=== PATIENT | female | born 1955 | race Caucasian/White ===

== ENCOUNTER → 2016-09-25 | Day surgery (SDC) | payer MEDICARE, OTHER ==
--- NOTE | 2016-09-24 18:56 | Pre-Procedure Note/Attestation ---
Pre-Procedure Note/Attestation Complete Prior to Procedure Planned Procedure: not applicable Procedure Narrative: Excision of excess tissue lower lip from foreign body material injected many years ago. Indications for Procedure Pre-Operative Diagnosis: Excess tissue lower lip-foreign body reaction. Attestation I attest that I discussed the nature of the procedure; its benefits; risks and complications; and alternatives (and the risks and benefits of such alternatives ), prior to the procedure, with the patient (or the patient's legal financial representative). I attest that, if there was a reasonable possibility of needing a blood transfusion, the patient (or the patient's legal financial representative) was given the [facility] standardized written summary, pursuant to the [place] Blood Safety Act ([place] Health and Safety Code # 1645, as amended). I attest that I re-evaluated the patient just prior to the surgery and that there has been no change in the patient's H&P-which was done by her PMD-an outside MD, whose note I have signed in the order. Pt INR yesterday was 1.0. HAZEL VILCHIS Sep 24, 2016 18:56
[2016-09-25] VITALS (7 sets, daily range): BP systolic 99–126; BP diastolic 54–72
[~2016-09-25] VITALS: Ht 162.6 cm; Wt 56.7 kg
[~2016-09-25] MED LIST: ABILIFY15 MG ORAL; Bacitracin Oint 15gm Tube TOPIC ONE; Bupivacaine w/Epi 0.5% 30ml Vial INJ ONE; CALCIUM CITRAT250 M1 PO; Dexamethasone 4mg/ml vial IVP ONE; Dexamethasone 4mg/ml vial ONE; HYDROmorphone 1mg/ml Carpuject SUBQ PRN; Hydrogen Peroxide 120ml Bottle TOPIC ONE; Hydromorphone 0.5mg/0.5ml inj IVP PRN; LR 1000ml 1,000 ML IV SCH; LR 1000ml 1,000 ML IVLG SCH; LR 1000ml ONE; Lidocaine 1% 10mg/ml/Epi 0.005mg/ml 30ml vial INJ ONE; MS CONTIN30 MG ORAL; Metoclopramide 10mg/2ml Inj IVP PRN; Midazolam 2mg/2ml Inj IVP PRN; Midazolam 2mg/2ml Inj ONE; NEURONTIN600 MG ORAL; NS Irrig 1000ml IRRIG ONE; NS Irrig 1000ml ONE; Norco 5mg/325mg tab ORAL PRN; Propofol 10mg/ml 20ml IV ONE; SERTRALINE HCL100 MG PO; Sterile Water Irrig 1000ml IRRIG ONE; TRAZODONE HCL100 MG ORAL; XANAX1 MG ORAL; ceFAZolin sod 1 GM in D5W 55 ML IV ONE; ePHEDrine 50mg/ml Inj ONE; fentaNYL 100 mcg/2 mL IV ONE
[2016-09-25 06:21] LABS: BASOPHILS % (AUTO) 0.7 % (0.0-2.0); EOSINOPHILS % (AUTO) 0.3 % (0.0-3.0); LYMPHOCYTES % (AUTO) 17.2 % (20.0-45.0); MEAN CORPUSCULAR HEMOGLOBIN 29.4 PG (27.0-31.0); MEAN CORPUSCULAR HGB CONC 31.8 G/DL (32.0-36.0); MEAN CORPUSCULAR VOLUME 92 FL (80-99); MEAN PLATELET VOLUME 7.6 FL (6.5-10.1); MONOCYTES % (AUTO) 5.9 % (1.0-10.0); NEUTROPHILS % (AUTO) 75.9 % (45.0-75.0); PLATELET COUNT 280 K/UL (150-450); RED BLOOD COUNT 3.98 M/UL (4.20-5.40); RED CELL DISTRIBUTION WIDTH 14.5 % (11.6-14.8); WHITE BLOOD COUNT 6.7 K/UL (4.8-10.8)
[2016-09-25 06:29] LABS: INR 0.9 (0.9-1.1); PROTHROMBIN TIME 9.4 SEC (9.30-11.50)
[2016-09-25 06:45] LABS: ANION GAP 16 (5-15); CALCIUM 9.1 mg/dL (8.6-10.2); CARBON DIOXIDE 25 mEQ/L (20-30); CHLORIDE 101 mEQ/L (98-107); CREATININE 0.8 mg/dL (0.5-0.9); GLOMERULAR FILTRATION RATE > 60 mL/min (>60); HEMOLYSIS 108; POTASSIUM 3.8 mEQ/L (3.4-4.9); SODIUM 142 mEQ/L (135-145)
--- NOTE | 2016-09-25 08:30 | Anethesia Preoperative Eval ---
Anesthesia Pre-op PMH/ROS General Date of Evaluation: Sep 25, 2016 Time of Evaluation: 07:25 Anesthesiologist: Prerna ASA Score: ASA 3 Mallampati Score Class I : Soft palate, uvula, fauces, pillars visible Class II: Soft palate, uvula, fauces visible Class III: Soft palate, base of uvula visible Class IV: Only hard plate visible Mallampati Classification: Class I Surgeon: Linda Diagnosis: Cyst lower lip Surgical Procedure: Excision of lower lip cyst Family History: no anesthesia problems Allergies: Coded Allergies: NALOXONE (Verified Allergy, Severe, Rash, 09/24/16) Oily Fish (Verified Allergy, Severe, 09/25/16) ANAPHYLACTIC SHOCK CARBAMAZEPINE (Verified Allergy, Intermediate, Rash, 09/24/16) DIVALPROEX SODIUM (Verified Allergy, Intermediate, Hives, 09/24/16) PENICILLINS (Verified Allergy, Intermediate, Rash, 09/24/16) PHENYTOIN (Verified Allergy, Intermediate, Rash, 09/24/16) Past Medical History Cardiovascular: Reports: other - CHF, Denies: CAD, HTN, SD, arrhythmia, valve dz Pulmonary: Denies: COPD, STORM, asthma, other Gastrointestinal/Genitourinary: Denies: CRI, ESRD, GERD, other Neurologic/Psychiatric: Reports: depression/anxiety Endocrine: Denies: DM, hypothyroidism, other, steroids HEENT: Denies: SILETZ TRIBE (L), [place] TRIBE (R), cataract (L), cataract (R), glaucoma, other Hematology/Immune: Denies: DVT, anemia, bleeding disorder, other Musculoskeletal/Integumentary: Reports: OA PMH Narrative: Immuno deficiency, CHF, depression, anxiety, OA PSxH Narrative: Multiple orthopedic surgeries including right TKR, left TSR, several ORIFs, BLANCHE , open lung biopsy Anesthesia Pre-op Phys. Exam Physician Exam Last Vital Signs Date Time Temp Pulse Resp B/P Pulse Ox O2 Delivery O2 Flow Rate FiO2 09/25/16 05:58 97.9 85 20 99/55 95 Room Air Neurologic: CN 2-12 intact Cardiovascular: no M/R/G Airway Exam Mallampati Score: Class I MO: full ROM: full Teeth: intact Anesthesia Pre-op A/P Labs Hematology Test 09/25/16 05:55 White Blood Count 6.7 K/UL (4.8-10.8) Red Blood Count 3.98 M/UL (4.20-5.40) L Hemoglobin 11.7 G/DL (12.0-16.0) L Hematocrit 36.7 % (37.0-47.0) L Mean Corpuscular Volume 92 FL (80-99) Mean Corpuscular Hemoglobin 29.4 PG (27.0-31.0) Mean Corpuscular Hemoglobin Concent 31.8 G/DL (32.0-36.0) L Red Cell Distribution Width 14.5 % (11.6-14.8) Platelet Count 280 K/UL (150-450) Mean Platelet Volume 7.6 FL (6.5-10.1) Neutrophils (%) (Auto) 75.9 % (45.0-75.0) H Lymphocytes (%) (Auto) 17.2 % (20.0-45.0) L Monocytes (%) (Auto) 5.9 % (1.0-10.0) Eosinophils (%) (Auto) 0.3 % (0.0-3.0) Basophils (%) (Auto) 0.7 % (0.0-2.0) Coagulation Test 09/25/16 05:55 Prothrombin Time 9.4 SEC (9.30-11.50) Prothromb Time International Ratio 0.9 (0.9-1.1) Activated Partial Thromboplast Time 22 SEC (23-33) L Chemistry Test 09/25/16 05:55 Sodium Level 142 mEQ/L (135-145) Potassium Level 3.8 mEQ/L (3.4-4.9) Chloride Level 101 mEQ/L (98-107) Carbon Dioxide Level 25 mEQ/L (20-30) Anion Gap 16 (5-15) H Blood Urea Nitrogen 17 mg/dL (7-23) Creatinine 0.8 mg/dL (0.5-0.9) Estimat Glomerular Filtration Rate > 60 mL/min (>60) Glucose Level 123 mg/dL (74-106) H Calcium Level 9.1 mg/dL (8.6-10.2) Studies Pre-op Studies: EKG - SR, IRBBB, LAHB Risk Assessment & Plan Assessment: Lower lip cyst Plan: GA, LMA Status Change Before Surgery: No Pre-Antibiotics Drug: Ancef Given Within 1 Hr of Incision: Yes Time Given: 07:45 TOÑO CAMARA M.D. Sep 25, 2016 08:30
--- NOTE | 2016-09-25 08:31 | Immediate Post-Op Evaluation ---
Immediate Post-Op Evalulation Immediate Post-Op Evalulation Procedure: Excision of lower lip cyst Date of Evaluation: Sep 25, 2016 Time of Evaluation: 07:25 IV Fluids: 500 Estimated Blood Loss: 10 Blood Pressure Systolic: 116 Blood Pressure Diastolic: 56 Pulse Rate: 90 Respiratory Rate: 16 O2 Sat by Pulse Oximetry: 92 Temperature (Fahrenheit): 98.3 Pain Score (1-10): 0 Nausea: No Vomiting: No Complications No complication Patient Status: awake, patent, none Hydration Status: adequate Drug: Ancef Given Within 1 Hr of Incision: Yes Time Given: 07:45 TOÑO CAMARA M.D. Sep 25, 2016 08:31
--- NOTE | 2016-09-25 08:59 | Brief Operative Note ---
Immediate Post Operative Note Operative Note Pre-op Diagnosis: Excess tissue lower lip-foreign body reaction. Procedure: excise excess tissue lower lip with multilayer reconstruction Post-op Diagnosis: same as pre-op Surgeon: Ryan Vilchis Shallot Packer: none Additional Surgeons: none Anesthesiologist: Prerna Anesthesia: general Specimen: yes - lower lip Complications: none Condition: stable Estimated Blood Loss: volume - 10 cc Drains: none Packing: none Implant(s) used?: No HAZEL VILCHIS Sep 25, 2016 08:59
--- NOTE | 2016-09-25 09:03 | Discharge Instructions ---
Discharge Instructions Discharge Instructions Follow up with: Dr. Vilchis at his office this Saturday-pt has appt already Diet: regular Resume Normal Activity?: No Activity: light activity Pneumonia Vaccine: pt refused vaccine Influenza Vaccine (Apr to Sep): pt refused vaccine Follow Up Orders pt. has printed instructions given to her at her pre op visit last week in my office Return to Work/School on: Oct 09, 2016 Special Instructions ice to lower lip 20 minutes every hour while awake x 48 hours, may continue past 48 hours if comfortable. For Surgical Patients Contact your physician for: bleeding, pain, tenderness, redness, swelling, yellowish discharge in the op. site For Congestive Heart Failure Reminder Report to your physician any weight gain of 5 pounds or more in one week. HAZEL VILCHIS Sep 25, 2016 09:03
--- NOTE | 2016-09-25 09:04 | 48 Hour Post Anesthesia Eval ---
Post Anesthesia Evaluation Procedure: Excision of lower lip cyst Date of Evaluation: Sep 25, 2016 Time of Evaluation: 09:40 Blood Pressure Systolic: 109 0: 56 Pulse Rate: 87 Respiratory Rate: 15 O2 Sat by Pulse Oximetry: 94 Airway: patent Nausea: No Vomiting: No Pain Intensity: 0 Hydration Status: adequate Cardiopulmonary Status: Stable Mental Status/LOC: patient returned to baseline Follow-up Care/Observations: As per surgery Post-Anesthesia Complications: No anesthetic complication Follow-up care needed: N/A TOÑO CAMARA M.D. Sep 25, 2016 09:03
--- NOTE | 2016-09-25 22:08 | Operative Note - Dictated ---
DATE OF OPERATION: 09/25/2016 SURGEON: Ervin Mckeon M.D. FRYLINE ATTENDANT: None . ANESTHESIOLOGIST: Mckinley Graff M.D. Anesthesia: LMA general anesthesia as well as a total of 8 mL 1% lidocaine 1:100,000 epinephrine and Marcaine 0.5% with 1:200,000 epinephrine in 50:50 mixture. INDICATION FOR SURGERY: The patient who had some unknown foreign substance injection into her lower lip many years ago, which has caused tissue reaction, enlargement of the lower lip. She is here removal of excess tissue from foreign body injection many years ago, which is tissue reaction. PREOPERATIVE DIAGNOSIS: The patient who had some unknown foreign substance injection into her lower lip many years ago, which has caused tissue reaction, enlargement of the lower lip. She is here removal of excess tissue from foreign body, which is tissue reaction. POSTOPERATIVE DIAGNOSIS: The patient who had some unknown foreign substance injection into her lower lip many years ago, which has caused tissue reaction, enlargement of the lower lip. She is here removal of excess tissue from foreign body, which is tissue reaction. FINDINGS: The patient who had some unknown foreign substance injection into her lower lip many years ago, which has caused tissue reaction, enlargement of the lower lip. She is here removal of excess tissue from foreign body, which is tissue reaction. PROCEDURE: Excision of lower lip 6 cm x 1.5 cm excess tissue, two multi layer closure. TECHNIQUE: The patient prepped and draped in usual manner via LMA general anesthesia. Time-out was performed. All agreed as to procedure and equipment indicated for use in this case. A bite block was placed on the left side. The LMA was taped on the upper lip to keep it out of the way. I used a Bovie to yandel along the lip taking out 1.5 cm diameter in the middle of coming to the 60 degrees angle on the side 6 cm along. After marking with a Bovie, I was able to take this down with Bovie and cutting with the scissors. Please note, the Bovie was set between 6 and 8 throughout the case with a needle tip. Specimen was sent for permanent section. I then proceeded with 4-0 plain in two layers first approximating the muscle and then approximating the fatty tissue underneath the mucosa to approximate the edges. I then proceeded to place a 4-0 silk horizontal mattress in the middle and then two running horizontal mattresses on either side coming towards the middle. I then proceeded to place two other 4-0 chromic stitches to clean out the few little mucosal edges. Sponge and needle count was correct. ESTIMATED BLOOD LOSS: 10 mL. COMPLICATIONS: None. DRAINS: None. Ervin Mckeon M.D. DR: Jacki JOB#: [id number] CC: LEANDRO
== END | disposition home or self-care (01) ==
LOC: SUR 05:13
DX: K13.0 Diseases of lips (principal); M79.5 Residual foreign body in soft tissue; M79.89 Other specified soft tissue disorders; G89.4 Chronic pain syndrome; D83.9 Common variable immunodeficiency, unspecified; D68.59 Other primary thrombophilia; D50.9 Iron deficiency anemia, unspecified; M81.0 Age-related osteoporosis without current pathological fracture; J30.9 Allergic rhinitis, unspecified; F31.9 Bipolar disorder, unspecified; F41.9 Anxiety disorder, unspecified; M19.90 Unspecified osteoarthritis, unspecified site; K59.09 Other constipation; Z88.8 Allergy status to other drugs, medicaments and biological substances; Z88.0 Allergy status to penicillin; Z91.018 Allergy to other foods
CPT/HCPCS: 11446; 12053; 36415; 80048; 85025; 85610; 85730; J1100; J2250; J2405; J2704; J3010; J7120; 94003; 94150